=== PATIENT | female | born 1960 | race Caucasian/White ===

== ENCOUNTER 2016-08-29 06:11 | Emergency (ER) | payer OTHER ==
[2016-08-29 07:27] VITALS: BP 136/78
== END 2016-08-29 07:27 | disposition home or self-care (01) ==
LOC: ED 06:11
DX: S01.511A Laceration without foreign body of lip, initial encounter (principal); W01.0XXA Fall on same level from slipping, tripping and stumbling without subsequent striking against object, initial encounter; Y93.89 Activity, other specified; Y92.89 Other specified places as the place of occurrence of the external cause; Y99.8 Other external cause status
CPT/HCPCS: J2001

== ENCOUNTER 2016-08-31 11:26 | Emergency (ER) | payer OTHER ==
[~2016-08-31] VITALS: Ht 162.6 cm; Wt 74.4 kg
[2016-08-31 11:30] VITALS: BP 150/101
== END 2016-08-31 13:25 | disposition home or self-care (01) ==
LOC: ED 11:26
DX: S01.511D Laceration without foreign body of lip, subsequent encounter (principal); X58.XXXD Exposure to other specified factors, subsequent encounter; Y99.8 Other external cause status; Y92.89 Other specified places as the place of occurrence of the external cause

== ENCOUNTER 2019-06-03 02:57 | Emergency (ER) | payer OTHER ==
[~2019-06-03] VITALS: Ht 162.6 cm; Wt 76.4 kg
[2019-06-03 03:04] VITALS: BP 146/77; Ht 162.6 cm; Wt 76.4 kg
== END 2019-06-03 05:18 | disposition home or self-care (01) ==
LOC: ED 02:57
DX: R10.13 Epigastric pain (principal); R68.83 Chills (without fever); R11.0 Nausea; R19.7 Diarrhea, unspecified; Z98.890 Other specified postprocedural states; Z98.51 Tubal ligation status
CPT/HCPCS: Q0162

== ENCOUNTER 2020-03-03 09:11 | Emergency (ER) | payer OTHER ==
[~2020-03-03] VITALS: Ht 162.6 cm; Wt 78.9 kg
[2020-03-03 09:21] VITALS: BP 133/80; Ht 162.6 cm; Wt 78.9 kg
[2020-03-03 10:18] LABS: BASOPHIL % 0.3 % (0.2-1.3); PLATELET COUNT 270 x10^3mcL (179-408); RED CELL DISTRIBUTION WIDTH 13.2 % (12.3-17.7)
[2020-03-03 10:54] LABS: rbc morphology (normal/abnorm) NORMAL (NORMAL)
[2020-03-03 10:58] LABS: CALCIUM 9.1 mg/dL (8.5-10.1); CARBON DIOXIDE 23.7 mmol/L (21-32); CHLORIDE SERUM 103 mmol/L (98-107); CREATININE SERUM 0.7 mg/dL (0.6-1.0); GFR1 > 60 mL/min; GLUCOSE SERUM 107 mg/dL (74-106); POTASSIUM SERUM 3.7 mmol/L (3.5-5.1); SODIUM SERUM 140 mmol/L (136-145)
[2020-03-03 11:02] LABS: ALBUMIN 3.9 g/dL (3.4-5.0); ALKALINE PHOSPHATASE 64 U/L (46-116); ALT/SGPT 24 U/L (14-59); AST/SGOT 15 U/L (15-37); BILIRUBIN TOTAL 0.38 mg/dL (0.20-1.00); TOTAL PROTEIN, SERUM 7.8 g/dL (6.4-8.2)
== END 2020-03-03 14:10 | disposition home or self-care (01) ==
LOC: ED 09:11
DX: K21.9 Gastro-esophageal reflux disease without esophagitis (principal)

== ENCOUNTER 2020-05-03 22:08 | Emergency (ER) | payer OTHER ==
[~2020-05-03] VITALS: Ht 162.6 cm; Wt 77.6 kg
[2020-05-03 22:19] VITALS: Ht 162.6 cm; Wt 77.6 kg
[2020-05-04 00:35] LABS: CALCIUM 9.5 mg/dL (8.5-10.1); CARBON DIOXIDE 26.1 mmol/L (21-32); CHLORIDE SERUM 102 mmol/L (98-107); CREATININE SERUM 0.8 mg/dL (0.6-1.0); GFR1 > 60 mL/min; GLUCOSE SERUM 113 mg/dL (74-106); POTASSIUM SERUM 4.1 mmol/L (3.5-5.1); SODIUM SERUM 138 mmol/L (136-145)
[2020-05-04 00:43] LABS: ALBUMIN 3.7 g/dL (3.4-5.0); ALKALINE PHOSPHATASE 65 U/L (46-116); ALT/SGPT 20 U/L (14-59); AST/SGOT 14 U/L (15-37); BILIRUBIN TOTAL 0.4 mg/dL (0.20-1.00); LIPASE 101 IU/L (73-393); TOTAL PROTEIN, SERUM 7.3 g/dL (6.4-8.2); TRIGLYCERIDES 53 mg/dL (<150)
[2020-05-04 00:44] LABS: CHOLESTEROL 236 mg/dL (<200); CHOLESTEROL/HDL RATIO 2.8; HDL CHOLESTEROL 85 mg/dL (40-60)
[2020-05-04 00:46] LABS: BASOPHIL % 0.4 % (0.2-1.3); PLATELET COUNT 290 x10^3mcL (179-408); RED CELL DISTRIBUTION WIDTH 13.1 % (12.3-17.7)
[2020-05-04] MEDS ORDERED: MP PO (01:48)
[2020-05-04] MEDS ORDERED: PRI20 PO (01:48)
[2020-05-04 02:12] VITALS: BP 123/76
== END 2020-05-04 02:12 | disposition home or self-care (01) ==
LOC: ED 22:08
PROVIDERS: Specialist
DX: R10.13 Epigastric pain (principal); E78.00 Pure hypercholesterolemia, unspecified; Z98.890 Other specified postprocedural states
CPT/HCPCS: J1885